=== PATIENT | male | born 1955 | race Caucasian/White ===

== ENCOUNTER 2018-05-03 01:54 | Inpatient (IN) | payer MEDICARE ==
[2018-05-03] VITALS (22 sets, daily range): BP systolic 109–165; BP diastolic 58–88; Ht 170.2 cm; Wt 88.9 kg
[~2018-05-03] VITALS: Ht 170.2 cm; Wt 88.9 kg
--- NOTE | ~2018-05-03 | EC ---
PATIENT:PAOLA MARTÍNEZ DATE OF SERVICE: 05/03/18 SEX: M MEDICAL RECORD: [id number] DATE OF : 55 LOCATION:[facility] AGE OF PATIENT: 62 ADMISSION DATE: 05/03/18 REFERRING PHYSICIAN: INTERPRETING PHYSICIAN: MARIA A THAYER MD ECHOCARDIOGRAM REPORT ECHO CHARGES 4 ECHO COMPLETE Date: 05/04 CLINICAL DIAGNOSIS: AVR RECENT ECHOCARDIOGRAPHIC MEASUREMENTS (adult normal given) AC root (d.<3.7cm) 3.7 cm LV Septum d (<1.2 cm> 1.3 cm Valve Excursion 1.7 cm LV Septum (systole) 1.6 cm Left Atria (s.<4.0cm> 4.1 cm LVPW d(<1.2cm) 1.4 cm RV (d.<2.3cm) 4.2 cm LVPW (sytole) 1.8 cm LV diastole(<5.6CM) 5.6 cm MV E-F(>70mm/sec) cm LV systole 4.3 cm LVOT Diameter 1.4 cm MV exc.(>10mm) 1.8 cm Est.ejection fraction (50-75%) % DOPPLER: LVIT cm/sec A 101 cm/sec E 114 cm/sec LA cm/sec RVSP 34 mmHg LVOT 126 cm/sec AOP1/2T m/s Asc. Ao 211 cm/sec RVOT 107 cm/sec RA cm/sec PA 133 cm/sec AV Gradient Peak 17.84mmHg AV Mean 8.42 mmHg AV Area 1.0 cm MV Gradient Peak 6.36 mmHg MV Mean 2.54 mmHg MV Area cm COMMENTS: Steam Cleaner: 2 NORI ROY Tower Hoist Operator: 4 Dr. Thayer TAPE# PACS Pericardial Effusion N DATE OF SERVICE: PROCEDURE: Transthoracic echocardiogram. FINDINGS: 1. The left ventricle is hyperdynamic, ejection fraction of 65% to 70%. 2. The left atrium is normal shape, size, structure and function. 3. The aortic valve is a tissue valve and normal function. 4. The mitral valve has [id number] mitral regurgitation. 5. Tricuspid valve has mild tricuspid regurgitation. Estimated PA pressure of ECHOCARDIOGRAM REPORT [id number] PAOLA MARTÍNEZ 34 mmHg. 6. The pericardium is normal. 7. The right ventricle is moderately dilated. 8. The pulmonic valve is normal. CONCLUSION: The patient has evidence of mild hypertensive heart disease, grade II diastolic dysfunction. The patient has a normally functioning aortic valve replacement with a slightly hyperdynamic LV systolic function. TRANSINT:[id number] Voice Confirmation ID: [id number] DOCUMENT ID: [id number] MARIA A THAYER MD at 0927 CC: [id number] DICTATION DATE: 05/05/18 1042 GRINDER SET UP OPERATOR GEAR TOOL: 05/05/18 1106 DIS IN 05/07/18 [id number] [place] [address]
[2018-05-03] MEDS ORDERED: LIPITOR40 MG PO (02:09)
[2018-05-03] MEDS ORDERED: BAYER CHEWABLE81 MG PO (02:09)
[2018-05-03] MEDS ORDERED: GLUCOPHAGE1000 MG PO (02:10)
[2018-05-03] MEDS ORDERED: COREG25 MG PO (02:10)
[2018-05-03] MEDS ORDERED: PLAVIX75 MG PO (02:10)
[2018-05-03] MEDS ORDERED: ZESTRIL40 MG PO (02:10)
[2018-05-03] MEDS ORDERED: OMEPRAZOLE20 M1 PO ×2 (02:11→05:13)
[2018-05-03] MEDS ORDERED: ADALAT CC90 MG PO (02:11)
[2018-05-03 02:34] LABS: BASOPHILS 0.1 % (0-2); EOSINOPHILS 0.1 % (0-7); HEMATOCRIT 26.6 % (42.0-54.0); HEMOGLOBIN 9.1 g/dL (13.5-17.5); IMMATURE GRANULOCYTES 0.3 % (0-5); LYMPHOCYTES 6.8 % (15-50); MCH 28.5 pg (26.0-34.0); MCHC 34.2 g/dL (31.0-37.0); MCV 83.4 fL (80.0-100.0); MEAN PLATELET VOLUME 12.6 fL (7.4-10.4); MONOCYTES 5.7 % (2-11); PLATELET COUNT 106 10x3/uL (130-400); RBC 3.19 10x6/uL (4.20-6.10); RDW 13.4 % (11.5-14.5); WBC 11.4 10x3/uL (4.8-10.8)
[2018-05-03 02:51] LABS: ALBUMIN 2.9 g/dL (3.4-5.0); ANION GAP 15.3 mmol/L (8-16); BILIRUBIN - TOTAL 0.3 mg/dL (0.2-1.3); CALCIUM 7.6 mg/dL (8.5-10.1); CARBON DIOXIDE 19.2 mmol/L (21.0-32.0); CREATININE - SERUM 1.1 mg/dL (0.6-1.3); PROTEIN - SERUM 5.4 g/dL (6.4-8.2)
[2018-05-03 02:54] LABS: POTASSIUM - SERUM 6.5 mmol/L (3.5-5.1)
[2018-05-03 08:20] LABS: BASOPHILS 0.1 % (0-2); EOSINOPHILS 0.1 % (0-7); HEMATOCRIT 25.1 % (42.0-54.0); HEMOGLOBIN 8.6 g/dL (13.5-17.5); IMMATURE GRANULOCYTES 0.2 % (0-5); LYMPHOCYTES 10.1 % (15-50); MCH 28.6 pg (26.0-34.0); MCHC 34.3 g/dL (31.0-37.0); MCV 83.4 fL (80.0-100.0); MEAN PLATELET VOLUME 12.1 fL (7.4-10.4); MONOCYTES 7.2 % (2-11); NEUTROPHILS 82.3 % (40-80); PLATELET COUNT 101 10x3/uL (130-400); RBC 3.01 10x6/uL (4.20-6.10); RDW 13.7 % (11.5-14.5); WBC 10.7 10x3/uL (4.8-10.8)
[2018-05-03 08:51] LABS: ALBUMIN 2.8 g/dL (3.4-5.0); BILIRUBIN - TOTAL 0.2 mg/dL (0.2-1.3); CALCIUM 7.7 mg/dL (8.5-10.1); CARBON DIOXIDE 17.4 mmol/L (21.0-32.0); CREATININE - SERUM 1.1 mg/dL (0.6-1.3); PROTEIN - SERUM 5.2 g/dL (6.4-8.2)
[2018-05-03 08:53] LABS: POTASSIUM - SERUM 6.4 mmol/L (3.5-5.1)
[2018-05-03 17:59] LABS: HEMATOCRIT 25.5 % (42.0-54.0); HEMOGLOBIN 8.7 g/dL (13.5-17.5)
[2018-05-04] VITALS (15 sets, daily range): BP systolic 108–171; BP diastolic 6–77
[2018-05-04 01:21] LABS: HEMATOCRIT 22.9 % (42.0-54.0); HEMOGLOBIN 7.9 g/dL (13.5-17.5)
[2018-05-04 04:08] LABS: BASOPHILS 0.3 % (0-2); EOSINOPHILS 0.7 % (0-7); HEMATOCRIT 24.1 % (42.0-54.0); HEMOGLOBIN 8.2 g/dL (13.5-17.5); IMMATURE GRANULOCYTES 0.2 % (0-5); LYMPHOCYTES 15.9 % (15-50); MCH 28.5 pg (26.0-34.0); MCV 83.7 fL (80.0-100.0); MEAN PLATELET VOLUME 12.9 fL (7.4-10.4); NEUTROPHILS 71.9 % (40-80); PLATELET COUNT 99 10x3/uL (130-400); RBC 2.88 10x6/uL (4.20-6.10); RDW 14.2 % (11.5-14.5); WBC 8.9 10x3/uL (4.8-10.8)
[2018-05-04 04:29] LABS: ALBUMIN 2.8 g/dL (3.4-5.0); BILIRUBIN - TOTAL 0.36 mg/dL (0.2-1.3); CALCIUM 7.9 mg/dL (8.5-10.1); CREATININE - SERUM 1.2 mg/dL (0.6-1.3); PROTEIN - SERUM 5.3 g/dL (6.4-8.2)
[2018-05-04 04:37] LABS: ANION GAP 14.1 mmol/L (8-16); CARBON DIOXIDE 23.1 mmol/L (21.0-32.0); POTASSIUM - SERUM 4.2 mmol/L (3.5-5.1)
[2018-05-04 08:49] LABS: HEMATOCRIT 24.1 % (42.0-54.0); HEMOGLOBIN 8.3 g/dL (13.5-17.5)
[2018-05-04 16:49] LABS: HEMATOCRIT 22.6 % (42.0-54.0); HEMOGLOBIN 7.6 g/dL (13.5-17.5)
[2018-05-05 00:47] VITALS: BP 154/64
[2018-05-05 00:56] LABS: HEMATOCRIT 22.5 % (42.0-54.0); HEMOGLOBIN 7.6 g/dL (13.5-17.5)
[2018-05-05 05:04] VITALS: BP 148/58
[2018-05-05 06:04] LABS: ANION GAP 9.1 mmol/L (8-16); CALCIUM 7.6 mg/dL (8.5-10.1); CREATININE - SERUM 1.1 mg/dL (0.6-1.3)
[2018-05-05 06:05] LABS: CARBON DIOXIDE 28.9 mmol/L (21.0-32.0)
[2018-05-05 08:04] VITALS: BP 144/74
[2018-05-05 08:19] LABS: HEMATOCRIT 22.9 % (42.0-54.0); HEMOGLOBIN 7.6 g/dL (13.5-17.5)
[2018-05-05 12:34] VITALS: BP 138/63
[2018-05-05 16:03] VITALS: BP 143/56
[2018-05-05 16:43] LABS: HEMATOCRIT 22.8 % (42.0-54.0)
[2018-05-05 16:56] LABS: HEMOGLOBIN 7.5 g/dL (13.5-17.5)
[2018-05-05 21:46] VITALS: BP 142/58
[2018-05-06 00:38] VITALS: BP 146/62
[2018-05-06 04:35] VITALS: BP 134/64
[2018-05-06 06:32] LABS: CALC OSMOLALITY 289 mosm/kg (275-300); CALCIUM 7.5 mg/dL (8.5-10.1); CARBON DIOXIDE 31.2 mmol/L (21.0-32.0); CHLORIDE - SERUM 107 mmol/L (98-107); GLUCOSE 281 mg/dL (74-106); SODIUM 141 mmol/L (136-145); UREA NITROGEN 9 mg/dL (7-18); eGFR NON AFRICAN AMERICAN 80 mL/min (90-120)
[2018-05-06 08:07] VITALS: BP 164/46
[2018-05-06 08:58] LABS: BASOPHILS 0.2 % (0-2); EOSINOPHILS 6.5 % (0-7); HEMATOCRIT 22.1 % (42.0-54.0); IMMATURE GRANULOCYTES 0.2 % (0-5); LYMPHOCYTES 28.7 % (15-50); MCH 28.6 pg (26.0-34.0); MCHC 33.5 g/dL (31.0-37.0); MCV 85.3 fL (80.0-100.0); MEAN PLATELET VOLUME 12.4 fL (7.4-10.4); MONOCYTES 9.7 % (2-11); NEUTROPHILS 54.7 % (40-80); PLATELET COUNT 94 10x3/uL (130-400); RBC 2.59 10x6/uL (4.20-6.10); RDW 13.4 % (11.5-14.5); WBC 4.7 10x3/uL (4.8-10.8)
[2018-05-06 09:13] LABS: HEMOGLOBIN 7.4 g/dL (13.5-17.5)
[2018-05-06 09:56] LABS: PLATELET ESTIMATE DECREASED
[2018-05-06 11:40] VITALS: BP 173/62
[2018-05-06 20:11] VITALS: BP 143/45
[2018-05-06 23:58] VITALS: BP 138/48
[2018-05-07] VITALS (7 sets, daily range): BP systolic 135–162; BP diastolic 54–93
[2018-05-07 03:06] LABS: BASOPHILS 0.2 % (0-2); EOSINOPHILS 9.2 % (0-7); HEMATOCRIT 23.8 % (42.0-54.0); LYMPHOCYTES 28.6 % (15-50); MCH 28.3 pg (26.0-34.0); MCHC 33.6 g/dL (31.0-37.0); MCV 84.1 fL (80.0-100.0); MEAN PLATELET VOLUME 11.7 fL (7.4-10.4); MONOCYTES 9.7 % (2-11); NEUTROPHILS 52.3 % (40-80); RBC 2.83 10x6/uL (4.20-6.10); RDW 13.1 % (11.5-14.5); WBC 4.1 10x3/uL (4.8-10.8)
[2018-05-07 03:07] LABS: PLATELET COUNT 119 10x3/uL (130-400)
[2018-05-07 03:19] LABS: ANION GAP 4.4 mmol/L (8-16); CALCIUM 7.9 mg/dL (8.5-10.1); CARBON DIOXIDE 33.5 mmol/L (21.0-32.0); CREATININE - SERUM 1.1 mg/dL (0.6-1.3); POTASSIUM - SERUM 3.9 mmol/L (3.5-5.1)
[2018-05-07] MEDS ORDERED: CARAFATE1 G/10 ML PO (09:37)
== END 2018-05-07 13:22 | disposition home or self-care (01) | DRG 380 ==
LOC: D.ER 01:54 → D.MS 02:24 → D.ICU 02:24 → D.MS 05-04 15:05
PROVIDERS: Family Medicine; Internal Medicine Gastroenterology; Internal Medicine Nephrology
PROC: 0DJ08ZZ Inspection of Upper Intestinal Tract, Via Natural or Artificial Opening Endoscopic (ICD-10-PCS; 2018-05-03)
PROC: 0D778ZZ Dilation of Stomach, Pylorus, Via Natural or Artificial Opening Endoscopic (ICD-10-PCS; principal; 2018-05-06 16:15)
DX: K31.1 Adult hypertrophic pyloric stenosis (principal); K25.4 Chronic or unspecified gastric ulcer with hemorrhage; D62 Acute posthemorrhagic anemia; E87.2 Acidosis; Z95.2 Presence of prosthetic heart valve; K21.0 Gastro-esophageal reflux disease with esophagitis; D50.9 Iron deficiency anemia, unspecified; E87.5 Hyperkalemia; I10 Essential (primary) hypertension; E11.9 Type 2 diabetes mellitus without complications; K31.84 Gastroparesis